=== PATIENT | male | born 1980 | race Caucasian/White ===

== ENCOUNTER 2017-01-31 21:11 | Emergency (ER) | payer BC ==
[~2017-01-31] VITALS: Ht 182.9 cm; Wt 94.8 kg
[2017-01-31 21:13] VITALS: TEMP 36.7; Ht 182.9 cm; Wt 94.8 kg
[2017-01-31] MEDS ORDERED: XYLOCAINE 1%/SOD BICARB 20 ML VIAL INFIL ONE (21:42)
[2017-01-31] MEDS ORDERED: CEPHALEXIN 500MG HOME PACK 1 EA BTL PO ONE (22:15)
[2017-01-31] MEDS ORDERED: CEPH500C2 PO (22:16)
[2017-01-31 22:21] VITALS: BP 115/56; PULSE 55; O2SAT 97
--- NOTE | 2017-02-01 00:47 | EMERGENCY ROOM VISIT NOTE ---
ED Visit Note First contact with patient: 21:40 CHIEF COMPLAINT: Left knee laceration HISTORY OF PRESENT ILLNESS: This 36-year-old patient presents to the emergency department after cutting the left knee wall cutting down a tree with a chain saw. Patient was wearing his pants and accidentally neck to his knee. He has multiple superficial lacerations just above the knee. The bleeding has not stopped. Denies weakness or numbness of the extremity. patient has full range of motion of the extremity The patient rates the pain as mild and 2/10. The patient denies any other injuries. The patient's tetanus shot is up to date. he is able to ambulate without difficulties. REVIEW OF SYSTEMS: A 6 system review of systems was completed with positives and pertinent negatives listed in the HPI. ALLERGIES: none MEDICATIONS: none PMH: none SOCIAL HISTORY: No drug use PHYSICAL EXAM: Vital Signs: Reviewed Nurse's notes, vital signs stable. GENERAL : Positive male, in no acute distress, well developed, well nourished. SKIN: There are 4 lacerations that are 2 cm, 3; 4 cm and 3 cm long laceration on the left leg just above the patella with superficial abrasions. The edges gape apart with traction. There is no foreign material in the wound and it looks clean. There is bleeding. No deep structures such as tendons, bones, or significant blood vessels are seen in the base of the wound. Extension and flexion of the extremity is full and strong. Full range of motion of the extremity. Capillary refill less than 2 seconds. Normal sensation to light and sharp touch. Laceration does not extend into the joint. EMERGENCY DEPARTMENT COURSE: I examined the patient. Using sterile technique the wound was cleansed with Betadine. 10 ml of 1% buffered lidocaine was used to anesthetize the patient. The area was sterilely draped. Once the patient was anesthetized, the wounds were copiously irrigated under pressure with sterile saline. The wounds were explored and there were no deep structures injured. The lacerations were repaired using total of 21 simple interrupted 4- 0 nylon sutures. The patient tolerated the procedure well. Hemostasis was achieved. The area was cleaned with sterile saline and dressed with bacitracin ointment and bandage. I did opt to start the patient on antibiotics for the multiple lacerations presents. The patient was discharged home in good condition. Differential diagnosis includes laceration, tendon injury, vascular injury and other etiologies were considered. DIAGNOSIS: Left knee lacerations DISCHARGE INSTRUCTIONS & TREATMENT: As below Current/Historical Medications Scheduled Cephalexin Monohydrate (Keflex), 500 MG PO QID Allergies Coded Allergies: No Known Allergies (Unverified Allergy, Mild, 05/30/06) Vital Signs Date Time Temp Pulse Resp B/P Pulse Ox O2 Delivery O2 Flow Rate FiO2 01/31/17 22:21 55 16 115/56 97 Room Air 01/31/17 21:13 36.7 55 16 132/80 96 Room Air Medications Administered Medications (Trade) Dose Ordered Sig/Kwame Route Start Time Stop Time Status Last Admin Dose Admin Cephalexin Monohydrate (Keflex 500MG Home Pack) 1 homepack NOW ONCE PO 01/31/17 22:15 01/31/17 22:16 DC 01/31/17 22:21 1 HOMEPACK Departure Information Impression Primary Impression: Laceration of left knee Dispostion Home / Self-Care Condition GOOD Prescriptions Cephalexin Monohydrate (KEFLEX) 500 Mg Cap 500 MG PO QID for 6 Days, #24 CAP Prov: Neha Quintero .BYRON 01/31/17 Forms HOME CARE DOCUMENTATION FORM, IMPORTANT VISIT INFORMATION Patient Instructions [facility], ED Laceration All Additional Instructions Cephalexin(Keflex) 500mg: Take one pill four times daily for 7 days. All antibiotics can cause diarrhea. If this occurs and you feel worse or it does not resolve in 1-2 days follow up with your doctor or return to the Emergency Department as this could be signs of serious underlying problems. Any medication can cause an allergic reaction, stop the pills immediately and return to the ER for rash, hives, breathing difficulties, or swelling. Wear Christiano wrap for compression for the next 2 weeks. Do not have it so tight that you cannot feel your foot. No strenuous activity until stitches are removed. Keep wound clean and dry. Do not allow any crusting or dried blood to accumulate on sutures. If this occurs, use a 1:1 solution of hydrogen peroxide/ water on a Q-tip to clean the wound. Use an antibiotic ointment for 3-4 days, then let wound dry. Suture removal in 10-14 days. Return sooner for any signs of infection (increasing redness, swelling, drainage). Ice and elevate for swelling and pain. Ibuprofen 600 mg and Tylenol 1000 mg every 6 hrs for pain. Keep covered when in sun until sutures removed then SPF 50 or higher for one year. Vitamin E oil if desired two weeks after suture removal for reduction of scar.
== END 2017-01-31 22:25 | disposition home or self-care (01) ==
LOC: C.EDB 21:12 → C.EDD 22:25
DX: S81.012A Laceration without foreign body, left knee, initial encounter (principal); W29.3XXA Contact with powered garden and outdoor hand tools and machinery, initial encounter